=== PATIENT | female | born 1945 | race Two or more races ===

== ENCOUNTER 2017-05-13 13:56 | Inpatient (IN) | payer MEDICARE, BC ==
[~2017-05-13] VITALS: Ht 154.9 cm; Wt 59.0 kg
--- NOTE | 2017-05-13 10:55 | NUR ---
SPOKE WITH THE PT CONCERNING VOIDING. IN REPORT WAS TOLD PT VOIDED PREVIOUSLY AFTER GRANADOS CATHETER WAS REMOVED BEFORE BEING ADMITTED TO ARU. PT STATED "I HAVEN'T URINATED SINCE THEY TOOK THE CATHETER OUT AROUND 2PM, I THINK". BLADDER SCAN WAS COMPLETED TO SHOW 437ML IN THE BLADDER. PT ALSO STATED "I DO NOT WANT ANOTHER GRANADOS OR STRAIGHT CATH AGAIN." SPOKE WITH DR VBA PROGRAMMER AND GAVE ORDERED FLOMAX. WILL CONTINUE TO MONITOR.
--- NOTE | 2017-05-13 19:40 | NUR ---
PT ADMITTED TO ARU VIA GURNEY. PT ALERT AND ORIENTED IN BED. NO DISTRESS NOTED. ABDUCTOR PILLOW IN PLACE. VS ELEVATED, PAIN 7/10 IN RIGHT HIP. WILL CALL DR CONFERENCE PLANNER FOR ORDERS. WILL CONTINUE TO MONITOR. CALL LIGHT WITHIN REACH. SAFETY MAINTAINED. BED ALARM ON.
[2017-05-13] MEDS ORDERED: TRAM50TA2 PO (19:53)
[2017-05-13] MEDS ORDERED: VIT1CAPS9 PO (19:53)
[2017-05-13] MEDS ORDERED: DIPH25CA83 PO (19:53)
[2017-05-13] MEDS ORDERED: LANS30CA56 PO (19:53)
[2017-05-13] MEDS ORDERED: ROSU5TAB PO (19:53)
[2017-05-13] MEDS ORDERED: ASPI-605 PO (19:53)
[2017-05-13] MEDS ORDERED: HYDR-3980 PO (19:53)
[2017-05-13] MEDS ORDERED: CARV3.122 PO (19:53)
[2017-05-13] MEDS ORDERED: RIVA10TA PO (19:53)
[2017-05-13 19:58] VITALS: BP 163/68
[2017-05-13] MEDS ORDERED: Z GUARD REMEDY PASTE 57 GM TUBE TOP PRN (20:00)
[2017-05-13] MEDS ORDERED: diphenhydrAMINE 25 MG CAP PO PRN (20:45)
[2017-05-13] MEDS ORDERED: CLONIDINE HCL 0.1 MG TABLET PO PRN (20:45)
[2017-05-13] MEDS ORDERED: Medication Not On Formulary EA (Rosuvastatin Calcium (Crestor) 5 MG) PO SCH (21:00)
[2017-05-13] MEDS ORDERED: CARVEDILOL 3.125 MG TABLET PO SCH (21:00)
[2017-05-13] MEDS: HYDROCODONE/APAP 10-325 MG TABLET PO PRN (21:30)
[2017-05-13] MEDS ORDERED: CARVEDILOL 3.125 MG TABLET ONE (21:37)
[2017-05-13] MEDS ORDERED: HYDROCODONE/APAP 10-325 MG TABLET ONE (21:37)
[2017-05-13 21:59] VITALS: BP 173/76
[2017-05-13] MEDS ORDERED: TAMSULOSIN HCL 0.4 MG CAP.SR.24H PO ONE (23:00)
[2017-05-13 23:30] VITALS: BP 145/69
[2017-05-14] MEDS: TRAMADOL HCL 50 MG TABLET PO PRN ×4 (01:08→21:12)
--- NOTE | 2017-05-14 01:10 | NUR ---
PT CALLED CONCERNED OF "HEART RACING" CHECKED VS, PULSE 104, BP 142/68, O2 SAT 90% ROOM AIR, COMPLAINING OF PAIN IN RIGHT HIP. PLACED PT ON 2L NC, O2 SAT 95%, GAVE ULTRAM FOR PAIN. PT VOIDED, CLEANED AND REPOSITIONED. WILL CONTINUE TO MONITOR.
[2017-05-14] MEDS ORDERED: TRAMADOL HCL 50 MG TABLET ONE ×2 (01:22→21:10)
[2017-05-14] MEDS ORDERED: PANTOPRAZOLE ORAL SUSPENSION 40 MG SUSPDR.PKT GT SCH (07:19)
[2017-05-14] MEDS ORDERED: Medication Not On Formulary EA (Lansoprazole 30 MG) PO SCH (07:30)
--- NOTE | 2017-05-14 07:30 | NUR ---
Received report from maintenance technician 3rd shift nurse, patient seen, upon rounds awake and alert, verbally responsive, able to make her needs known, not in acute distress, turned and repositioned for comfort and pressure relief, kept clean and dry no complaint of any discomfort at this time, needs attended promptly, call light in reach.
--- NOTE | 2017-05-14 07:32 | NUR ---
PT RESTING IN BED. NO DISTRESS NOTED. ABDUCTOR PILLOW IN PLACE. ABLE TO VOID THROUGHOUT THE NIGHT AFTER FLOMAX. NO COMPLAINTS OF PAIN. CLEAN AND DRY. TURNED AND REPOSITIONED. SAFETY MAINTAINED. CALL LIGHT WITHIN REACH.
[2017-05-14 08:42] LABS: IRON, SERUM 17 ug/dL (50-175)
[2017-05-14 08:43] LABS: BASOPHILS # (AUTO) 0.1 K/uL (0.0-8.0); BASOPHILS % (AUTO) 0.7 % (0.0-2.0); EOSINOPHILS # (AUTO) 0.8 K/uL (0.0-0.7); EOSINOPHILS % (AUTO) 9.2 % (0.0-7.0); HEMATOCRIT 30.3 % (31.2-41.9); HEMOGLOBIN 10.5 g/dL (10.9-14.3); LYMPHOCYTES # (AUTO) 1.2 K/uL (20.0-40.0); LYMPHOCYTES % (AUTO) 13.6 % (20.5-51.5); MEAN CORPUSCULAR HEMOGLOBIN 31.6 uug (24.7-32.8); MEAN CORPUSCULAR HGB CONC 35 g/dL (32.3-35.6); MEAN CORPUSCULAR VOLUME 91.4 fL (75.5-95.3); MONOCYTES % (AUTO) 11.4 % (0.0-11.0); NEUTROPHILS # (AUTO) 5.8 K/uL (1.8-8.9); NEUTROPHILS % (AUTO) 65.1 % (38.5-71.5); PLATELET COUNT (AUTO) 229 K/uL (179-408); RED BLOOD CELL COUNT(AUTO) 3.31 MIL/uL (3.63-4.92); WHITE BLOOD COUNT (AUTO) 8.9 K/uL (3.8-11.8)
[2017-05-14 08:47] LABS: THYROID STIMULATING HORMONE 1.342 mIU/mL (0.358-3.740)
[2017-05-14] MEDS: CARVEDILOL 3.125 MG TABLET PO SCH ×2 (08:49→17:07)
[2017-05-14] MEDS: ASPIRIN EC 81 MG TABLET.DR PO SCH (08:50)
[2017-05-14] MEDS: BETA CAROTENE/VIT C & E/MIN TABLET PO SCH (08:50)
[2017-05-14] MEDS ORDERED: Medication Not On Formulary EA (Vit A/Vit C/Vit E/Zinc/Copper (Preservision Areds Softge PO SCH (09:00)
[2017-05-14 09:05] LABS: ALANINE AMINOTRANSFERASE 17 U/L (14-59); ALKALINE PHOSPHATASE 59 U/L (50-136); ASPARTATE AMINOTRANSFERASE 31 U/L (15-37); BILIRUBIN,TOTAL 0.5 mg/dL (0.2-1.0); CARBON DIOXIDE 27 mmol/L (21-32); CHLORIDE 104 mmol/L (98-107); CHOLESTEROL 109 mg/dL (<200); CREATININE 0.8 mg/dL (0.6-1.3); GLUCOSE 123 mg/dL (74-106); HDL CHOLESTEROL 39 mg/dL (40-60); MAGNESIUM 2.3 mg/dL (1.8-2.4); PHOSPHOROUS 2.8 mg/dL (2.5-4.9); POTASSIUM 3.9 mmol/L (3.5-5.1); TRIGLYCERIDES 103 MG/DL (30-150); UREA NITROGEN, BLOOD 16 mg/dL (7-18)
[2017-05-14] MEDS: HYDROCODONE/APAP 10-325 MG TABLET PO PRN ×2 (10:47→17:08)
[2017-05-14] MEDS: PANTOPRAZOLE SODIUM 40 MG TABLET.DR PO SCH (10:47)
[2017-05-14] MEDS: RIVAROXABAN 10 MG TABLET PO SCH (17:05)
--- NOTE | 2017-05-14 18:45 | NUR ---
Patient resting comfortably in bed, awake and alert, verbally responsive, pain management provided as needed, repositioned for comfort. Surgical dressing on the right intact and dry, no drainage at this time, no signs and symptoms of infection. Needs attended promptly, call light in reach.
--- NOTE | 2017-05-14 19:30 | NUR ---
Received patient laying comfortably in bed. No acute distress noted. A&O x 4. No c/o pain. Abductor pillow in place. Safety initiated. Call light within reach. Will continue to monitor.
[2017-05-14] MEDS: ATORVASTATIN 10 MG TABLET GT SCH (21:11)
[2017-05-15] MEDS: TRAMADOL HCL 50 MG TABLET PO PRN ×6 (02:00→23:30)
[2017-05-15] MEDS ORDERED: TRAMADOL HCL 50 MG TABLET ONE ×2 (02:11→06:53)
--- NOTE | 2017-05-15 05:51 | NUR ---
Patient slept intermittently t/o shift. No acute distress noted. C/O pain, meds given, stated relief. Abductor in place. Turn and repositioned Q2H. Vital signs stable. BP WNL. Dressing on the right hip C/D/I. Urinating well. Safety and comfort measures maintained t/o shift. All meds given as ordered. All needs met.
[2017-05-15] MEDS: PANTOPRAZOLE SODIUM 40 MG TABLET.DR PO SCH (06:21)
[2017-05-15] MEDS: FERROUS GLUCONATE 324 MG TABLET PO SCH ×2 (08:44→20:33)
[2017-05-15] MEDS: BETA CAROTENE/VIT C & E/MIN TABLET PO SCH (08:44)
[2017-05-15] MEDS: ASPIRIN EC 81 MG TABLET.DR PO SCH (08:45)
[2017-05-15] MEDS: CARVEDILOL 6.25 MG TABLET PO SCH ×2 (08:45→18:17)
[2017-05-15] MEDS ORDERED: CARVEDILOL 3.125 MG TABLET PO SCH (09:00)
[2017-05-15 09:03] VITALS: BP 132/66
--- NOTE | 2017-05-15 15:27 | NUR ---
I agree Addendum: 05/15/17 at 1527 by TIMOTEO GAMBOA OT Amended: Links added.
--- NOTE | 2017-05-15 15:28 | NUR ---
I agree Addendum: 05/15/17 at 1528 by TIMOTEO GAMBOA OT Amended: Links added.
[2017-05-15] MEDS: RIVAROXABAN 10 MG TABLET PO SCH (17:25)
--- NOTE | 2017-05-15 19:30 | NUR ---
Received pt from day shift nurse. shift report at bedside. patient a/o x4 with no signs of pain, sob or acute distress. vital signs stable at start of shift. pt lying comfortably in bed at start of shift. bed in low in position x2 side rails up. pertinent assessment completed. call light placed within reach of pt. will continue to monitor pt through shift.
[2017-05-15] MEDS: ATORVASTATIN 10 MG TABLET GT SCH (20:33)
[2017-05-15 22:04] VITALS: BP 137/56
[2017-05-16] MEDS: TRAMADOL HCL 50 MG TABLET PO PRN ×4 (05:06→20:26)
--- NOTE | 2017-05-16 06:00 | NUR ---
PATIENT SLEPT INTERMITTENTLY THROUGH SHIFT. COMPLAINTS OF RIGHT HIP PAIN DURING SHIFT. ADMINISTERED TRAMADOL ORDERED Q4HRS PRN. NO SIGNS OF SOB OR ACUTE DISTRESS. VITALS STABLE THROUGH SHIFT. ALL NEEDS ATTENDED. ALL MEDS ADMINISTERED ORDERED PER MD. SAFETY MEASURES IMPLEMENTED. BED IN LOW POSITION, LOCKED, X2 SIDE RAILS UP. CALL LIGHT PLACED WITHIN REACH OF PATIENT. ENCOURAGED PATIENT TO USE CALL LIGHT. WILL ENDORSE TO DAY SHIFT NURSE.
[2017-05-16] MEDS: PANTOPRAZOLE SODIUM 40 MG TABLET.DR PO SCH (06:13)
[2017-05-16 07:12] VITALS: BP 152/70
[2017-05-16] MEDS: BETA CAROTENE/VIT C & E/MIN TABLET PO SCH (09:35)
[2017-05-16] MEDS: FERROUS GLUCONATE 324 MG TABLET PO SCH ×2 (09:35→20:26)
[2017-05-16] MEDS: ASPIRIN EC 81 MG TABLET.DR PO SCH (09:35)
[2017-05-16] MEDS: CARVEDILOL 6.25 MG TABLET PO SCH ×2 (09:36→18:17)
[2017-05-16 12:00] VITALS: BP 124/57
--- NOTE | 2017-05-16 14:25 | NUR ---
Notified Dr. Rojas regarding patient's complain of nausea and painful urination. MD ordered Zofran 4mg PO x 1 and urinalysis. Order carried out and patient aware.
[2017-05-16] MEDS ORDERED: ONDANSETRON HCL 4 MG TABLET PO ONE (14:30)
[2017-05-16] MEDS: RIVAROXABAN 10 MG TABLET PO SCH (18:20)
[2017-05-16 19:30] VITALS: BP 139/55
--- NOTE | 2017-05-16 19:30 | NUR ---
RECEIVED PATIENT FROM DAY SHIFT NURSE. SHIFT REPORT AT BEDSIDE. PATIENT LYING COMFORTABLY IN BED AT START OF SHIFT. A/O X4 WITH NO SIGNS OF SOB OR ACUTE DISTRESS. PERTINENT ASSESSMENT COMPLETED. VITAL SIGNS STABLE AT START OF SHIFT. BED IN LOW POSITION, LOCKED, WITH X2 SIDE RAILS UP. CALL LIGHT PLACED WITHIN REACH OF PATIENT. ENCOURAGED PT TO USE CALL LIGHT WHEN NEEDING TO USE BEDSIDE COMMODE. WILL CONTINUE TO MONITOR PATIENT THROUGH SHIFT.
[2017-05-16] MEDS: ATORVASTATIN 10 MG TABLET GT SCH (20:25)
[2017-05-17] MEDS: OXYCODONE/APAP 5-325 MG TABLET PO PRN ×3 (03:04→17:26)
[2017-05-17] MEDS ORDERED: OXYCODONE/APAP 5-325 MG TABLET ONE (03:19)
--- NOTE | 2017-05-17 06:15 | NUR ---
PT STABLE THROUGH SHIFT. NO SIGNS OF SOB OR ACUTE DISTRESS. ALL NEEDS ATTENDED TO. ALL MEDS ADMINISTERED ORDERED PER MD. CALL LIGHT PLACED WITHIN REACH OF PT. ENCOURAGED PT TO USE CALL LIGHT WHEN NEEDING TO USE COMMODE. SAFETY MEASURES IMPLEMENTED. WILL ENDORSE TO DAY SHIFT NURSE.
[2017-05-17] MEDS: PANTOPRAZOLE SODIUM 40 MG TABLET.DR PO SCH (06:21)
[2017-05-17 07:14] LABS: *BILIRUBIN,URIN NEGATIVE (NEGATIVE); *BLOOD, URINE Trace-lysed (NEGATIVE); *CLARITY,URINE CLEAR (CLEAR); *COLOR,URINE YELLOW (YELLOW); *KETONES,URINE NEGATIVE (NEGATIVE); *PROTEIN,URINE NEGATIVE (NEGATIVE); LEUKOCYTE ESTERASE ,URINE TRACE (NEGATIVE); NITRITE, URINE POSITIVE (NEGATIVE); PH,URINE 6.5 (5.0-8.0); UGLUCOSE NEGATIVE (NEGATIVE)
[2017-05-17 07:58] VITALS: BP 124/59
[2017-05-17 09:02] LABS: BACTERIA,URINE FEW /HPF (NONE SEEN); SQUAMOUS EPITHELIAL CELL,UR MODERATE /HPF (NONE SEEN)
[2017-05-17] MEDS: ASPIRIN EC 81 MG TABLET.DR PO SCH (10:15)
[2017-05-17] MEDS: CARVEDILOL 6.25 MG TABLET PO SCH ×2 (10:15→18:42)
[2017-05-17] MEDS: FERROUS GLUCONATE 324 MG TABLET PO SCH ×2 (10:15→20:28)
[2017-05-17] MEDS: BETA CAROTENE/VIT C & E/MIN TABLET PO SCH (10:15)
--- NOTE | 2017-05-17 11:14 | NUR ---
I agree Addendum: 05/17/17 at 1115 by TIMOTEO GAMBOA OT Amended: Links added.
--- NOTE | 2017-05-17 16:17 | NUR ---
I agree Addendum: 05/17/17 at 1618 by TIMOTEO GAMBOA OT Amended: Links added.
[2017-05-17] MEDS: RIVAROXABAN 10 MG TABLET PO SCH (18:43)
[2017-05-17 19:30] VITALS: BP 133/58
--- NOTE | 2017-05-17 19:30 | NUR ---
Received pt from day shift nurse. shift report at bedside. pt a/oX4 lying comfortably in bed at start of shift. no signs of pain, sob, or acute distress. pertinent assessment completed. vital signs within normal limits at start of shift. bed in low position, locked, bed alarm on, x2 side rails up. call light placed within reach of pt. will continue to monitor pt through shift.
[2017-05-17] MEDS: ATORVASTATIN 10 MG TABLET GT SCH (20:28)
[2017-05-18] MEDS: OXYCODONE/APAP 5-325 MG TABLET PO PRN ×3 (00:39→17:28)
--- NOTE | 2017-05-18 05:38 | NUR ---
Patient stable through shift. no acute distress noted through shift. vital signs stable through shift. all needs attended to. all meds administered as ordered per md. safety measures implemented. call light within reach of pt. will endorse to day shift nurse.
[2017-05-18] MEDS: PANTOPRAZOLE SODIUM 40 MG TABLET.DR PO SCH (06:23)
[2017-05-18 07:30] VITALS: BP 149/70
--- NOTE | 2017-05-18 07:57 | NUR ---
patient noted resting in bed with eyes closed, no facial cues of pain noted, no signs of distress, call light in reach, bed locked and in lowest position
--- NOTE | 2017-05-18 08:24 | NUR ---
I agree Addendum: 05/18/17 at 0824 by TIMOTEO GAMBOA OT Amended: Links added.
--- NOTE | 2017-05-18 08:24 | NUR ---
I agree Addendum: 05/18/17 at 5898 by TIMOTEO GAMBOA OT Amended: Links added.
[2017-05-18] MEDS: FERROUS GLUCONATE 324 MG TABLET PO SCH ×2 (08:51→20:18)
[2017-05-18] MEDS: ASPIRIN EC 81 MG TABLET.DR PO SCH (08:51)
[2017-05-18] MEDS: BETA CAROTENE/VIT C & E/MIN TABLET PO SCH (08:52)
[2017-05-18] MEDS: CARVEDILOL 6.25 MG TABLET PO SCH ×2 (08:52→17:31)
[2017-05-18] MEDS: RIVAROXABAN 10 MG TABLET PO SCH (17:27)
--- NOTE | 2017-05-18 17:57 | NUR ---
INTERDISCIPLINARY TEAM CONFERENCE
--- NOTE | 2017-05-18 19:30 | NUR ---
Received patient from day shift nurse. patient lying in bed comfortably at start of shift with no signs of pain, sob, or acute distress. vital signs within normal limits. pertinent assessment completed. vital signs within normal limits. bed in low position, locked, x2 side rails up. encouraged pt to use call light when in need of using restroom. call light placed within reach of pt. will continue to monitor pt through shift.
[2017-05-18 20:05] VITALS: BP 124/59
[2017-05-18] MEDS: ATORVASTATIN 10 MG TABLET GT SCH (20:18)
[2017-05-19] MEDS: OXYCODONE/APAP 5-325 MG TABLET PO PRN ×4 (01:50→22:08)
--- NOTE | 2017-05-19 05:33 | NUR ---
Patient slept well through shift. no changes in pt condition. vitals within normal limits. all needs attended to. all meds administered as ordered per md. safety measures implemented. bed in low position, locked, x2 side rails up. call light placed within reach of pt. will endorse to day shift nurse.
[2017-05-19] MEDS: PANTOPRAZOLE SODIUM 40 MG TABLET.DR PO SCH (06:06)
[2017-05-19 08:00] VITALS: BP 153/74
--- NOTE | 2017-05-19 08:14 | NUR ---
PATIENT NOTED RESTING IN BED WATCHING TV, STATES SHE WOULD LIKE PAIN MEDICINE BEFORE THERAPY, NO SIGNS OF DISTRESS, CALL LIGHT IN REACH, BED LOCKED AND IN LOWEST POSITION, BED ALARM IN PLACE, X 2 BED RAILS, ABDUCTOR PILLOW IN PLACE
[2017-05-19] MEDS: BETA CAROTENE/VIT C & E/MIN TABLET PO SCH (09:11)
[2017-05-19] MEDS: ASPIRIN EC 81 MG TABLET.DR PO SCH (09:11)
[2017-05-19] MEDS: FERROUS GLUCONATE 324 MG TABLET PO SCH ×2 (09:12→20:09)
[2017-05-19] MEDS: CARVEDILOL 6.25 MG TABLET PO SCH ×2 (09:12→17:57)
[2017-05-19] MEDS: RIVAROXABAN 10 MG TABLET PO SCH (17:56)
--- NOTE | 2017-05-19 19:30 | NUR ---
Received patient resting comfortably in bed. AAO x4. No acute distress noted. No c/o pain or discomfort at this time. Safety measures maintained. Call light and personal belongings within reach. Will continue to monitor.
[2017-05-19 19:50] VITALS: BP 139/60
[2017-05-19] MEDS: ATORVASTATIN 10 MG TABLET GT SCH (20:09)
--- NOTE | 2017-05-20 05:41 | NUR ---
Patient slept comfortably t/o the night. C/o pain on the right hip and interventions were done. All meds given as prescribed. Vital signs stable. All needs attended to promptly.
[2017-05-20] MEDS: PANTOPRAZOLE SODIUM 40 MG TABLET.DR PO SCH (06:14)
[2017-05-20] MEDS: OXYCODONE/APAP 5-325 MG TABLET PO PRN ×3 (06:15→22:04)
[2017-05-20 08:00] VITALS: BP 152/66
[2017-05-20] MEDS: CARVEDILOL 6.25 MG TABLET PO SCH ×2 (08:41→18:29)
[2017-05-20] MEDS: ASPIRIN EC 81 MG TABLET.DR PO SCH (08:42)
[2017-05-20] MEDS: BETA CAROTENE/VIT C & E/MIN TABLET PO SCH (08:42)
[2017-05-20] MEDS: FERROUS GLUCONATE 324 MG TABLET PO SCH ×2 (08:42→21:18)
[2017-05-20] MEDS: RIVAROXABAN 10 MG TABLET PO SCH (18:23)
--- NOTE | 2017-05-20 18:40 | NUR ---
Patient is awake, up in bed, not in any discomfort, denies any form of pain. Surgical dressing intact and dry. No drainage noted. Kept clean and dry. Needs attended promptly. Pain management provided as needed, kept comfortable. Due medications given, blood pressure well within acceptable limits for the patients overall condition. Call light and belongings placed in reached, safety measures maintained.
[2017-05-20 19:30] VITALS: BP 140/55
--- NOTE | 2017-05-20 19:40 | NUR ---
Received pt in bed, AAO x 3 watching television. Verbally responsive and able to make needs known. Denies pain or discomfort at this time. All safety measures and fall precautions maintained. Call light and personal belongings within reach. Will continue to monitor. Addendum: 05/20/17 at 2218 by Blaine Leigh RN No acute distress noted.
[2017-05-20] MEDS: ATORVASTATIN 10 MG TABLET GT SCH (21:18)
[2017-05-21] MEDS: PANTOPRAZOLE SODIUM 40 MG TABLET.DR PO SCH (06:31)
--- NOTE | 2017-05-21 07:41 | NUR ---
Patient is awake and alert, skin is warm and dry to touch, afebrile, and not in acute distress at this time. Patient c/o of pain, and was provided with PRN pain medication per doctors order. Patient remains compliant with her plan of care, and expresses her motivation to achieve her daily goals. Needs attended promptly, will continue to monitor.
[2017-05-21 07:55] VITALS: BP 152/64
[2017-05-21] MEDS: CARVEDILOL 6.25 MG TABLET PO SCH ×2 (08:06→17:45)
[2017-05-21] MEDS: ASPIRIN EC 81 MG TABLET.DR PO SCH (08:06)
[2017-05-21] MEDS: BETA CAROTENE/VIT C & E/MIN TABLET PO SCH (08:07)
[2017-05-21] MEDS: FERROUS GLUCONATE 324 MG TABLET PO SCH ×2 (08:07→20:41)
[2017-05-21] MEDS: OXYCODONE/APAP 5-325 MG TABLET PO PRN ×3 (08:10→21:11)
--- NOTE | 2017-05-21 17:17 | NUR ---
At 1630, Patients' surgical dressing was removed, pertinent wound assessment done, no drainage noted, no foul odor, no signs and symptoms of infection noted, prior to wound dressing patient was premedicated with her prn pain medication, she tolerated wound care, cleansed with NS pat dry, and covered with surgical dressing. She denies pain at this time, kept patient clean dry and comfortable. At 1715, Patient had a room change she was transferred to room 103, she was well informed and verbalized understanding of the room change, she was then oriented about her new room, regarding the whereabouts of the toilet, closet, telephone, and her call light was kept in easy reach. All need attended promptly, safety measures maintained, will continue to monitor. Addendum: 05/21/17 at 1730 by CAPO GARZA JR., RN Error to Room 103. Patient was transferred to Room 104. Not in acute distress, denies any pain at this time, call light in reach.
[2017-05-21] MEDS: RIVAROXABAN 10 MG TABLET PO SCH (17:42)
--- NOTE | 2017-05-21 19:35 | NUR ---
Received pt in bed, AAO x 4 watching television. Verbally responsive and able to make needs known. Denies pain or discomfort at this time. No acute distress noted. All safety measures and fall precautions maintained. Call light and all personal belongings within reach. Will continue to monitor.
[2017-05-21 20:00] VITALS: BP 143/67
[2017-05-21] MEDS: ATORVASTATIN 10 MG TABLET GT SCH (20:41)
[2017-05-22] MEDS: OXYCODONE/APAP 5-325 MG TABLET PO PRN ×3 (04:44→17:44)
[2017-05-22] MEDS: PANTOPRAZOLE SODIUM 40 MG TABLET.DR PO SCH (06:07)
[2017-05-22 07:10] VITALS: BP 139/65
[2017-05-22] MEDS: CARVEDILOL 6.25 MG TABLET PO SCH ×2 (08:26→17:45)
[2017-05-22] MEDS: FERROUS GLUCONATE 324 MG TABLET PO SCH ×2 (08:27→20:29)
[2017-05-22] MEDS: ASPIRIN EC 81 MG TABLET.DR PO SCH (08:27)
[2017-05-22] MEDS: BETA CAROTENE/VIT C & E/MIN TABLET PO SCH (08:28)
[2017-05-22] MEDS: RIVAROXABAN 10 MG TABLET PO SCH (17:45)
--- NOTE | 2017-05-22 18:12 | NUR ---
Patient is awake and alert, skin is warm and dry to touch, afebrile, and not in acute distress at this time. Patient c/o of pain, and was provided with PRN pain medication per doctors order. Patient remains compliant with her plan of care, and expresses her motivation to achieve her daily goals, surgical dressing on the right hip remains intact and dry with no signs and no symptom of infection at this time, healing well. Needs attended promptly, call light in easy reach.
[2017-05-22 19:36] VITALS: BP 167/55
[2017-05-22] MEDS: ATORVASTATIN 10 MG TABLET GT SCH (20:29)
--- NOTE | 2017-05-22 20:30 | NUR ---
Received pt on bed alert, awake and oriented x3. Able to make needs known. Pleasant, clam and cooperative to care. No acute distress noted. No complaints of pain or discomfort. No SOB noted. BP elevated, PRN BP meds given. Assisted to the bathroom as needed. Call light within reach. All needs met.
[2017-05-22 21:43] VITALS: BP 121/56
[2017-05-23] MEDS: OXYCODONE/APAP 5-325 MG TABLET PO PRN ×4 (02:31→21:32)
--- NOTE | 2017-05-23 05:33 | NUR ---
Patient slept well throughout the shift. No acute distress noted. Complained of 6/10 right hip pain, medicated with percocet PRN as ordered. Relief noted. Assisted to the bathroom as needed. Call light placed within reach. All needs met.
[2017-05-23] MEDS: PANTOPRAZOLE SODIUM 40 MG TABLET.DR PO SCH (06:25)
[2017-05-23 08:44] VITALS: BP 139/46
[2017-05-23 08:49] LABS: BASOPHILS # (AUTO) 0.1 K/uL (0.0-8.0); BASOPHILS % (AUTO) 0.9 % (0.0-2.0); EOSINOPHILS # (AUTO) 0.5 K/uL (0.0-0.7); EOSINOPHILS % (AUTO) 5.8 % (0.0-7.0); HEMATOCRIT 28.7 % (31.2-41.9); HEMOGLOBIN 9.8 g/dL (10.9-14.3); LYMPHOCYTES # (AUTO) 1.9 K/uL (20.0-40.0); LYMPHOCYTES % (AUTO) 22.7 % (20.5-51.5); MEAN CORPUSCULAR HEMOGLOBIN 31.3 uug (24.7-32.8); MEAN CORPUSCULAR HGB CONC 34 g/dL (32.3-35.6); MEAN CORPUSCULAR VOLUME 91.7 fL (75.5-95.3); MONOCYTES # (AUTO) 0.6 K/uL (2.0-10.0); MONOCYTES % (AUTO) 7.4 % (0.0-11.0); NEUTROPHILS # (AUTO) 5.3 K/uL (1.8-8.9); NEUTROPHILS % (AUTO) 63.2 % (38.5-71.5); RED BLOOD CELL COUNT(AUTO) 3.13 MIL/uL (3.63-4.92); WHITE BLOOD COUNT (AUTO) 8.4 K/uL (3.8-11.8)
[2017-05-23 08:59] LABS: PLATELET COUNT (AUTO) 434 K/uL (179-408)
[2017-05-23] MEDS: BETA CAROTENE/VIT C & E/MIN TABLET PO SCH (09:07)
[2017-05-23] MEDS: ASPIRIN EC 81 MG TABLET.DR PO SCH (09:07)
[2017-05-23] MEDS: FERROUS GLUCONATE 324 MG TABLET PO SCH ×2 (09:09→20:42)
[2017-05-23] MEDS: CARVEDILOL 6.25 MG TABLET PO SCH ×2 (09:09→17:30)
[2017-05-23 09:19] LABS: ALANINE AMINOTRANSFERASE 28 U/L (14-59); ASPARTATE AMINOTRANSFERASE 21 U/L (15-37); BILIRUBIN,TOTAL 0.5 mg/dL (0.2-1.0); CARBON DIOXIDE 25 mmol/L (21-32); CHLORIDE 108 mmol/L (98-107); CREATININE 0.9 mg/dL (0.6-1.3); GLUCOSE 96 mg/dL (74-106); PHOSPHOROUS 3.6 mg/dL (2.5-4.9); POTASSIUM 3.8 mmol/L (3.5-5.1); TOTAL PROTEIN, SERUM 5.8 g/dL (6.4-8.2); UREA NITROGEN, BLOOD 14 mg/dL (7-18)
[2017-05-23 10:04] LABS: ALKALINE PHOSPHATASE 99 U/L (50-136)
[2017-05-23] MEDS: RIVAROXABAN 10 MG TABLET PO SCH (17:25)
--- NOTE | 2017-05-23 18:18 | NUR ---
Patient is awake and alert, skin is warm and dry to touch, afebrile, and not in acute distress at this time. Patient c/o of pain, and was provided with PRN pain medication per doctors order. Patient remains compliant with her plan of care, and expresses her motivation to achieve her daily goals, surgical dressing on the right hip remains intact and dry with no signs and no symptom of infection at this time, healing well. Needs attended promptly, call light in easy reach. Surgical wound weekly photo documentation done. Patient on Xarelto no signs and no symptoms of bleeding, no bruises noted.
[2017-05-23 20:21] VITALS: BP 136/57
[2017-05-23] MEDS: ATORVASTATIN 10 MG TABLET GT SCH (20:42)
--- NOTE | 2017-05-23 21:57 | NUR ---
AAOx4 Ambulates with walker to the BR. Voiding without any difficulty. Needs attended. VSS. Pain meds given @ 2130. Right hip dressing clean dry and intact. Will monitor patient. Kept comfortable.
[2017-05-24] MEDS: PANTOPRAZOLE SODIUM 40 MG TABLET.DR PO SCH (06:39)
[2017-05-24] MEDS: OXYCODONE/APAP 5-325 MG TABLET PO PRN ×3 (06:40→19:38)
[2017-05-24 08:46] VITALS: BP 143/68
[2017-05-24] MEDS: ASPIRIN EC 81 MG TABLET.DR PO SCH (08:52)
[2017-05-24] MEDS: FERROUS GLUCONATE 324 MG TABLET PO SCH ×2 (08:54→20:55)
[2017-05-24] MEDS: CARVEDILOL 6.25 MG TABLET PO SCH ×2 (08:54→17:28)
[2017-05-24] MEDS: BETA CAROTENE/VIT C & E/MIN TABLET PO SCH (08:54)
[2017-05-24] MEDS: RIVAROXABAN 10 MG TABLET PO SCH (17:24)
--- NOTE | 2017-05-24 17:45 | NUR ---
pt stable throughout the day. pt is min assist/ contact guard on mobility. pt seems to have drug seeking behavior on percocet. reasssed pt. pt seems to no be in pain. bp continues to be elevated. will continue to monitor.
[2017-05-24] MEDS: ATORVASTATIN 10 MG TABLET GT SCH (20:55)
[2017-05-24 21:15] VITALS: BP 146/52
[2017-05-25] MEDS: OXYCODONE/APAP 5-325 MG TABLET PO PRN ×4 (03:04→21:58)
--- NOTE | 2017-05-25 05:49 | NUR ---
slept well. pain meds given as needed. no acute distress noted. will monitor patient. ambulates to the BR with supervision. Voiding well. Kept comfortable. needs attended. fall precautions maintained. siderails up for safety. call mckeon within reach.
[2017-05-25] MEDS: PANTOPRAZOLE SODIUM 40 MG TABLET.DR PO SCH (06:31)
[2017-05-25] MEDS: BETA CAROTENE/VIT C & E/MIN TABLET PO SCH (09:08)
[2017-05-25] MEDS: ASPIRIN EC 81 MG TABLET.DR PO SCH (09:08)
[2017-05-25] MEDS: CARVEDILOL 6.25 MG TABLET PO SCH ×2 (09:09→18:21)
[2017-05-25] MEDS: FERROUS GLUCONATE 324 MG TABLET PO SCH ×2 (09:09→20:19)
[2017-05-25 09:35] VITALS: BP 108/54
--- NOTE | 2017-05-25 13:25 | NUR ---
INTERDISCIPLINARY TEAM CONFERENCE
[2017-05-25] MEDS: RIVAROXABAN 10 MG TABLET PO SCH (18:24)
--- NOTE | 2017-05-25 19:30 | NUR ---
Received patient sitting up in bed. Alert and oriented x4. Able to make needs known. Denies any pain and discomfort. No acute distress. No SOB. Kept clean and dry. All needs attended to promptly. Call light within reach. Will continue to monitor.
[2017-05-25 19:59] VITALS: BP 118/49
[2017-05-25] MEDS: ATORVASTATIN 10 MG TABLET GT SCH (20:19)
[2017-05-26] MEDS: OXYCODONE/APAP 5-325 MG TABLET PO PRN ×4 (03:37→22:44)
[2017-05-26] MEDS: PANTOPRAZOLE SODIUM 40 MG TABLET.DR PO SCH (06:32)
--- NOTE | 2017-05-26 06:37 | NUR ---
Patient slept comfortably throughout the night. Pain medication given as needed. No acute distress. No SOB. Right hip dressing kept clean and dry. Assisted to the bathroom as needed. Tolerated well. All needs attended to promptly. Call light within reach. Will continue to monitor.
[2017-05-26 07:30] VITALS: BP 133/62
[2017-05-26] MEDS: FERROUS GLUCONATE 324 MG TABLET PO SCH ×2 (09:54→20:16)
[2017-05-26] MEDS: BETA CAROTENE/VIT C & E/MIN TABLET PO SCH (09:54)
[2017-05-26] MEDS: ASPIRIN EC 81 MG TABLET.DR PO SCH (09:55)
[2017-05-26] MEDS: CARVEDILOL 6.25 MG TABLET PO SCH ×2 (09:56→18:16)
--- NOTE | 2017-05-26 11:37 | NUR ---
SBAR report received, board updated. Pt assessed, no pain, SOB, or acute distress noted at this time. Pt V/S taken again 152/59, 77, BP medication along with all other routine medications administered. Plan of care discussed with Pt. Bed in lowest position, locked, with side rails up x2. All comfort and safety measures met. Personal items and call light placed within reach. Will continue to monitor.
[2017-05-26] MEDS: RIVAROXABAN 10 MG TABLET PO SCH (18:19)
--- NOTE | 2017-05-26 19:30 | NUR ---
PT ALERT AND ORIENTED IN BED. NO DISTRESS NOTED. COMPLIANT WITH NURSING CARE. SAFETY MAINTAINED. CALL LIGHT WITHIN REACH. WILL CONTINUE TO MONITOR.
--- NOTE | 2017-05-26 19:34 | NUR ---
Pt seen by MD, no new orders at this time. Pt reported pain 6-7/10 due to hip incision, Oxycotin pain medication administered per QID orders. Call light within reach. All comfort and safety measures met. Will endorse to on coming security shift manager.
[2017-05-26 20:16] VITALS: BP 149/58
[2017-05-26] MEDS: ATORVASTATIN 10 MG TABLET GT SCH (20:16)
[2017-05-27] MEDS: OXYCODONE/APAP 5-325 MG TABLET PO PRN ×3 (06:09→18:24)
[2017-05-27] MEDS: PANTOPRAZOLE SODIUM 40 MG TABLET.DR PO SCH (06:09)
--- NOTE | 2017-05-27 06:51 | NUR ---
PT ALERT AND ORIENTED IN BED. NO DISTRESS NOTED. PAIN MEDICATION GIVEN REQUESTED PER PT. COMPLIANT WITH NURSING CARE. CLEAN AND DRY. SAFETY MAINTAINED. CALL LIGHT WITHIN REACH.
[2017-05-27] MEDS: BETA CAROTENE/VIT C & E/MIN TABLET PO SCH (08:43)
[2017-05-27] MEDS: FERROUS GLUCONATE 324 MG TABLET PO SCH ×2 (08:43→21:23)
[2017-05-27] MEDS: CARVEDILOL 6.25 MG TABLET PO SCH ×2 (08:43→17:53)
[2017-05-27] MEDS: ASPIRIN EC 81 MG TABLET.DR PO SCH (08:44)
[2017-05-27 10:51] VITALS: BP 156/51
--- NOTE | 2017-05-27 15:09 | NUR ---
SBAR report received, board updated. Pt assessed, Pt pain managed with QID pain medication. No SOB or acute distress noted. Pt compliant with all routine medications. All comfort and safety needs met. bed in locked and lowest position, with side rails up x2. Call light and personal items within reach. Will continue to monitor.
[2017-05-27] MEDS: RIVAROXABAN 10 MG TABLET PO SCH (17:57)
--- NOTE | 2017-05-27 18:55 | NUR ---
Pt visited by brother at bedside for dinner. Pt pain /10 managed with QID pain medication as ordered. V/S reassessed 145/52, 82, BP medication administered per orders. Call light within reach. Will continue to monitor and endorse to film processing shift supervisor.
--- NOTE | 2017-05-27 19:40 | NUR ---
Received patient laying in bed, alert and oriented x4. Verbally responsive and able to make needs known.Breathing regular, no acute distress. No SOB. Kept clean and dry. Safety measures provided. All needs attended to promptly. Call light within reach. Will continue to monitor.
[2017-05-27 20:00] VITALS: BP 130/48
[2017-05-27] MEDS: ATORVASTATIN 10 MG TABLET GT SCH (21:23)
[2017-05-28] MEDS: OXYCODONE/APAP 5-325 MG TABLET PO PRN ×3 (00:31→14:33)
[2017-05-28] MEDS: PANTOPRAZOLE SODIUM 40 MG TABLET.DR PO SCH (06:48)
[2017-05-28] MEDS: CARVEDILOL 6.25 MG TABLET PO SCH (07:48)
--- NOTE | 2017-05-28 07:52 | NUR ---
SBAR report received, board updated. Pt assessed, awake, alert, and oriented x4. Pt able to make needs known. Pt requested PRN pain medication received QID with morning medications. Pt able to make needs known. Plan of care for today's expected discharge. Breakfast served. Bed in low, locked position. Call light within reach. Will continue to monitor.
[2017-05-28] MEDS: BETA CAROTENE/VIT C & E/MIN TABLET PO SCH (08:17)
[2017-05-28] MEDS: FERROUS GLUCONATE 324 MG TABLET PO SCH (08:17)
[2017-05-28] MEDS: ASPIRIN EC 81 MG TABLET.DR PO SCH (08:17)
--- NOTE | 2017-05-28 08:24 | NUR ---
I agree Addendum: 05/28/17 at 0824 by TIMOTEO GAMBOA OT Amended: Links added.
--- NOTE | 2017-05-28 08:24 | NUR ---
I agree Addendum: 05/28/17 at [id number] by TIMOTEO GAMBOA OT Amended: Links added.
--- NOTE | 2017-05-28 08:25 | NUR ---
I agree Addendum: 05/28/17 at 7294 by TIMOTEO GAMBOA OT Amended: Links added.
[2017-05-28 10:40] VITALS: BP 123/60
--- NOTE | 2017-05-28 15:00 | NUR ---
Pt seen by , new order for discharge received. Pt assisted to shower and dress for transfer via ambulance scheduled for 4pm to transfer to [facility]. Picture taken of incision on right hip, clean dressing applied. Picture placed in chart. Personal belongings accounted for, packed, form signed, and copy placed in chart. No home medications to return. V/S taken to be 98.8 temp, 74, 129/48, 99% in RA, and 16 RR. Pain medication administered to manage 6/10 incisional pain, per PRN QID orders. Pt education information provided, and orders for XRay to be done by SNF prior to appointment with Dr. Henderson on 06/06/17 at 10:30am as scheduled discussed with Pt. Call light within reach, will continue to monitor.
--- NOTE | 2017-05-28 16:10 | NUR ---
SBAR report given at 1542 to [facility] [place]. Room 32 C confirmed. glove maker arrived and report given. All discharge concerns addressed at this time. All hospital information regarding this admission reviewed, documents signed, and copies placed in chart. Pt ID band removed and Pt escorted into ambulance safely. Will remove from computer system shortly.
== END 2017-05-28 16:10 | DRG 559 ==
PROVIDERS: ADMIT Physical Medicine & Rehabilitation Pain Medicine; ATTEND Physical Medicine & Rehabilitation Pain Medicine
DX: S72.011D Unspecified intracapsular fracture of right femur, subsequent encounter for closed fracture with routine healing (principal); E43 Unspecified severe protein-calorie malnutrition; I50.32 Chronic diastolic (congestive) heart failure; D68.59 Other primary thrombophilia; I11.0 Hypertensive heart disease with heart failure; D63.8 Anemia in other chronic diseases classified elsewhere; I35.1 Nonrheumatic aortic (valve) insufficiency; W19.XXXD Unspecified fall, subsequent encounter; Z96.641 Presence of right artificial hip joint; I25.10 Atherosclerotic heart disease of native coronary artery without angina pectoris; Z86.73 Personal history of transient ischemic attack (TIA), and cerebral infarction without residual deficits; R53.1 Weakness; E78.5 Hyperlipidemia, unspecified; K21.9 Gastro-esophageal reflux disease without esophagitis; M54.10 Radiculopathy, site unspecified; M47.9 Spondylosis, unspecified; Z68.24 Body mass index [BMI] 24.0-24.9, adult
CPT/HCPCS: 36415; 82306; 83550; 83735; 84100; 84443; 85025; 92526; 92610; 97110; 97112; 97116; 97530; 97535; A4663; Q0162